=== PATIENT | male | born 1990 | race Two or more races ===

== ENCOUNTER 2018-12-16 03:54 | Emergency (ER) | payer SELFPAY ==
--- NOTE | 2018-12-16 07:13 | NUR ---
CALLED IN WAITING ROOM. NO ANSWER.
== END 2018-12-16 07:25 | disposition left against medical advice (07) ==
LOC: ER 07:20
DX: Z53.21 Procedure and treatment not carried out due to patient leaving prior to being seen by health care provider (principal); R07.9 Chest pain, unspecified

== ENCOUNTER 2018-12-16 03:57 | Emergency (ER) | payer OTHER ==
[~2018-12-16] VITALS: Ht 175.3 cm; Wt 65.8 kg
--- NOTE | 2018-12-16 04:00 | NUR ---
PT IN BED
[2018-12-16] MEDS ORDERED: IBUPROFEN 400 MG TABLET ONE (05:30)
[2018-12-16] MEDS ORDERED: IBUPROFEN 400 MG TABLET PO ONE (05:30)
--- NOTE | 2018-12-16 05:40 | NUR ---
Jhoan bernardo in [facility] - 12/16/18 at 0541 by CAITLIN PT PLACED IN BED
--- NOTE | 2018-12-16 05:41 | NUR ---
ECG/EKG DONE, CHEST XRAY DONE, PAIN MEDS GIVEN, PT TO BE DISCHARGED.
[2018-12-16 05:54] VITALS: BP 120/74
== END 2018-12-16 05:56 | disposition home or self-care (01) ==
LOC: ER 04:05
DX: R07.89 Other chest pain (principal); Z60.2 Problems related to living alone
CPT/HCPCS: 71045-TC